=== PATIENT | female | born 1965 | race Caucasian/White ===

== ENCOUNTER 2017-07-13 20:41 | Inpatient (IN) | payer OTHER, MEDICARE, MEDICAID ==
[~2017-07-13] VITALS: Ht 170.2 cm; Wt 51.3 kg
[~2017-07-13 20:41] MED LIST: CYCL-36 PO; IBUP400T20 PO; KETO10 PO; TRAM50 PO
--- NOTE | 2017-07-13 21:16 | PD ---
HPI Chief Complaint: Psychiatric Symptoms Time Seen by Provider: 21:14 Travel History International Travel<30 days: No Contact w/Intl Traveler<30days: No Traveled to known affect area: No History of Present Illness HPI 51-year-old female presents under Blunt act initially by the Police Department. According to her paper, "Chato has been sitting in the yard for 3 days, without eating, waiting for a [employer] clearing house to arrive with a weaning check. Nikunj has not been taking her prescribed depression medication as directed. Chato is also diagnosed with anxiety. Chato was not making reasonable statements upon contact with law enforcement. There is roommate advised her his mental health condition has deteriorated over the course of the weekend." Patient is a poor historian so history is somewhat limited. She says that she lives with an older gentleman and her roommates daughter made these accusations to the police but she denies them. Symptoms are moderate, no obvious aggravating or relieving factors. She also has an area of redness and pain to the left side of her nose which she says started yesterday. No other complaints at this time. History of rheumatoid arthritis and osteoarthritis. PFSH Social History Alcohol Use: No Tobacco Use: Yes Allergies-Medications (Allergen,Severity, Reaction): Coded Allergies: No Known Allergies (Verified , 12/06/08) Reported Meds & Prescriptions Reported Meds & Active Scripts Active Keflex (Cephalexin) 500 Mg Cap 500 Mg PO Q8H 7 Days Bactrim DS (Sulfamethoxazole-Trimethoprim) 800-160 Mg Tab 1 Tab PO BID Flexeril (Cyclobenzaprine HCl) 10 Mg Tab 1 Tab PO Q6-8HPRN FOR MUSCLE SPASM Ultram (Tramadol HCl) 50 Mg Tab 1 Tab PO Q6-8HPRN FOR PAIN Reported Motrin (Ibuprofen) 400 Mg Tab 400 Mg PO Toradol (Ketorolac Tromethamine) 10 Mg Tab 0 PO UNKNOWN DOSE Review of Systems Except as stated in HPI: all other systems reviewed are Neg Physical Exam Narrative GENERAL: Disheveled female in no acute distress SKIN: Warm and dry. There is an area of erythema and induration to the left side of the nose. No fluctuance. HEAD: Atraumatic. Normocephalic. EYES: Pupils equal and round. No scleral icterus. No injection or drainage. ENT: No nasal bleeding or discharge. Mucous membranes pink and moist. NECK: Trachea midline. No JVD. CARDIOVASCULAR: Regular rate and rhythm. No murmur appreciated. RESPIRATORY: No accessory muscle use. Clear to auscultation. Breath sounds equal bilaterally. GASTROINTESTINAL: Abdomen soft, non-tender, nondistended. Hepatic and splenic margins not palpable. MUSCULOSKELETAL: No obvious deformities. No clubbing. No cyanosis. No edema. NEUROLOGICAL: Awake and alert. No obvious cranial nerve deficits. Motor grossly within normal limits. Normal speech. PSYCHIATRIC: Tangential speech, insight and judgment appear impaired. Data Data Last Documented VS Vital Signs Date Time Temp Pulse Resp B/P (MAP) Pulse Ox O2 Delivery O2 Flow Rate FiO2 07/13/17 21:26 98.3 93 16 168/119 (135) 98 Orders Orders Complete Blood Count With Diff (07/13/17 21:22) Comprehensive Metabolic Panel (07/13/17 21:22) Thyroid Stimulating Hormone (07/13/17 21:22) Psych Screen (07/13/17 21:22) Sulfamet-Trimeth Ds 800-160 Mg (Bactrim (07/13/17 21:30) Cephalexin (Keflex) (07/13/17 21:30) Magnesium (Mg) (07/13/17 22:05) Potassium Chloride (Kcl) (07/13/17 22:15) Potassium Chlor 20 Meq Premix (Kcl 20 Me (07/13/17 22:15) Electrocardiogram (07/13/17 ) Potassium Chloride (Kcl) (07/14/17 06:00) Sulfamet-Trimeth Ds 800-160 Mg (Bactrim (07/14/17 09:00) Cephalexin (Keflex) (07/14/17 06:00) Labs Laboratory Tests Test 07/13/17 21:38 White Blood Count 7.8 TH/MM3 Red Blood Count 4.08 MIL/MM3 Hemoglobin 13.2 GM/DL Hematocrit 37.4 % Mean Corpuscular Volume 91.7 FL Mean Corpuscular Hemoglobin 32.4 PG Mean Corpuscular Hemoglobin Concent 35.3 % Red Cell Distribution Width 14.8 % Platelet Count 103 TH/MM3 Mean Platelet Volume 8.4 FL Neutrophils (%) (Auto) 61.9 % Lymphocytes (%) (Auto) 29.6 % Monocytes (%) (Auto) 7.0 % Eosinophils (%) (Auto) 0.9 % Basophils (%) (Auto) 0.6 % Neutrophils # (Auto) 4.8 TH/MM3 Lymphocytes # (Auto) 2.3 TH/MM3 Monocytes # (Auto) 0.5 TH/MM3 Eosinophils # (Auto) 0.1 TH/MM3 Basophils # (Auto) 0.0 TH/MM3 CBC Comment AUTO DIFF Differential Comment AUTO DIFF CONFIRMED Platelet Estimate LOW Platelet Morphology Comment NORMAL Blood Urea Nitrogen 15 MG/DL Creatinine 0.72 MG/DL Random Glucose 85 MG/DL Total Protein 7.7 GM/DL Albumin 3.8 GM/DL Calcium Level 9.2 MG/DL Alkaline Phosphatase 112 U/L Aspartate Amino Transf (AST/SGOT) 50 U/L Alanine Aminotransferase (ALT/SGPT) 49 U/L Total Bilirubin 1.3 MG/DL Sodium Level 136 MEQ/L Potassium Level 2.7 MEQ/L Chloride Level 98 MEQ/L Carbon Dioxide Level 25.9 MEQ/L Anion Gap 12 MEQ/L Estimat Glomerular Filtration Rate 85 ML/MIN Magnesium Level 1.9 MG/DL Thyroid Stimulating Hormone 3rd Gen 0.349 uIU/ML MDM Medical Decision Making Medical Screen Exam Complete: Yes Emergency Medical Condition: Yes Medical Record Reviewed: Yes Differential Diagnosis Acute psychosis, substance-induced mood disorder, adjustment reaction, schizophrenia, medication noncompliance Narrative Course Mental health screening discussed with the patient. Psychiatric screen ordered. The patient was [facility] because she is outside of their scope of practice secondary to chronic pain from rheumatoid arthritis. On examination she has cellulitis to the left side of her nose which is mild and will be treated with Bactrim and Keflex. A urine drug screen was performed today and which is positive for marijuana, methamphetamines, tricyclic antidepressants, oxycodone. Routine lab work has been ordered. Lab work reveals a potassium of 2.7. 20 mEq IV potassium administered, 40 mg oral potassium administered. An additional 40 mEq oral potassium chloride have been ordered for the morning. Patient was also ordered Q12 Bactrim and Q8 Keflex. The patient is medically cleared for psychiatric disposition. Diagnosis Primary Impression: Medical clearance for psychiatric admission Additional Impressions: Cellulitis, face Hypokalemia Scripts Cephalexin (Keflex) 500 Mg Cap 500 MG PO Q8H for Infection for 7 Days, #21 CAP 0 Refills Prov: Manuel Vail MD 07/13/17 Sulfamethoxazole-Trimethoprim (Bactrim DS) 800-160 Mg Tab 1 TAB PO BID for Infection, #14 TAB 0 Refills Prov: Manuel Vail MD 07/13/17 Hunter Peres Jul 13, 2017 21:16
[2017-07-13 21:26] VITALS: BP 168/119; PULSE 93; RESP 16; TEMP 98.3; O2SAT 98
[2017-07-13] MEDS ORDERED: CEPHALEXIN MONOHYDRATE 500 MG CAP PO ONE (21:30)
[2017-07-13] MEDS ORDERED: SULFAMETHOXAZOLE-TRIMETHOPRIM DS 800-160 MG TAB PO ONE (21:30)
[2017-07-13 21:47] LABS: AUTOMATED NEUTROPHIL # 4.8 TH/MM3 (1.8-7.7); BASOPHIL % 0.6 % (0.0-2.0); EOSINOPHIL # 0.1 TH/MM3 (0-0.4); EOSINOPHIL % 0.9 % (0.0-4.0); HEMATOCRIT 37.4 % (35.0-46.0); HEMOGLOBIN 13.2 GM/DL (11.6-15.3); LYMPH % 29.6 % (9.0-44.0); LYMPHOCYTE # 2.3 TH/MM3 (1.0-4.8); MEAN CELL VOLUME 91.7 FL (80.0-100.0); MEAN CORPUSCULAR HEMOGLOBIN 32.4 PG (27.0-34.0); MEAN CORPUSCULAR HGB CONC 35.3 % (32.0-36.0); MEAN PLATELET VOLUME 8.4 FL (7.0-11.0); MONOCYTE # 0.5 TH/MM3 (0-0.9); NEUT % 61.9 % (16.0-70.0); PLATELET COUNT 103 TH/MM3 (150-450); RED BLOOD COUNT 4.08 MIL/MM3 (4.00-5.30); RED CELL DISTRIBUTION WIDTH 14.8 % (11.6-17.2); WHITE BLOOD COUNT 7.8 TH/MM3 (4.0-11.0)
[2017-07-13 22:01] LABS: ALBUMIN 3.8 GM/DL (3.4-5.0); ALT (GPT) 49 U/L (10-53); AST (GOT) 50 U/L (15-37); BICARBONATE 25.9 MEQ/L (21.0-32.0); BLOOD UREA NITROGEN 15 MG/DL (7-18); CALCIUM 9.2 MG/DL (8.5-10.1); CHLORIDE 98 MEQ/L (98-107); CREATININE 0.72 MG/DL (0.50-1.00); GLOMERULAR FILTRATION RATE 85 ML/MIN (>89); GLUCOSE,RANDOM 85 MG/DL (74-106); SODIUM (NA) 136 MEQ/L (136-145)
[2017-07-13] MEDS ORDERED: POTASSIUM CHLORIDE 20 MEQ CONTROLLED RELEASE TAB PO ONE (22:15)
[2017-07-13] MEDS ORDERED: POTASSIUM CHLOR 20 MEQ PREMIX 100 ML IV ONE (22:15)
[2017-07-13 22:16] LABS: ALKALINE PHOSPHATASE 112 U/L (45-117); TOTAL BILIRUBIN ADULT 1.3 MG/DL (0.2-1.0); TOTAL PROTEIN 7.7 GM/DL (6.4-8.2)
[2017-07-13] MEDS ORDERED: CEPH-460 PO (22:43)
[2017-07-13] MEDS ORDERED: BACT800T5 PO (22:43)
[2017-07-13] MEDS ORDERED: ZOLO100T PO (22:54)
[2017-07-13] MEDS ORDERED: BUSP15TA PO (22:54)
[2017-07-13] MEDS ORDERED: LISI10TA3 PO (22:54)
[2017-07-13] MEDS ORDERED: ZYPR5TAB PO (22:54)
[2017-07-14 05:54] VITALS: BP 155/93; PULSE 106; RESP 16; O2SAT 97
[2017-07-14] MEDS: CEPHALEXIN MONOHYDRATE 500 MG CAP PO SCH ×3 (05:54→21:53)
[2017-07-14] MEDS ORDERED: POTASSIUM CHLORIDE 20 MEQ CONTROLLED RELEASE TAB PO ONE (06:00)
[2017-07-14] MEDS ORDERED: CEPHALEXIN MONOHYDRATE 500 MG CAP PO SCH (09:00)
[2017-07-14] MEDS ORDERED: ACETAMINOPHEN 325 MG TAB PO PRN (09:00)
[2017-07-14] MEDS ORDERED: SULFAMETHOXAZOLE-TRIMETHOPRIM DS 800-160 MG TAB PO SCH (09:00)
[2017-07-14] MEDS ORDERED: MAGNESIUM HYDROXIDE SUSP 30 ML CUP PO PRN (09:00)
[2017-07-14] MEDS ORDERED: LORazepam 2 MG/ML VIAL IM PRN ×2 (09:00)
[2017-07-14] MEDS ORDERED: LORazepam 0.5 MG TAB PO PRN (09:00)
[2017-07-14] MEDS ORDERED: ALUMINUM/MAGNESIUM/SIMETH 30 ML CUP PO PRN (09:00)
[2017-07-14] MEDS: SULFAMETHOXAZOLE-TRIMETHOPRIM DS 800-160 MG TAB PO SCH ×2 (09:59→21:53)
[2017-07-14] MEDS: LISINOPRIL 10 MG TAB PO SCH (09:59)
[2017-07-14] MEDS: LORazepam 1 MG TAB PO PRN ×2 (09:59→17:13)
[2017-07-14] MEDS: NICOTINE 21 MG/24 HR PATCH T-DERMAL SCH (10:00)
[2017-07-14 10:02] VITALS: BP 138/90; PULSE 101; RESP 19; O2SAT 98
[2017-07-14 11:00] VITALS: BP 120/75; PULSE 67; RESP 16; TEMP 97.7; O2SAT 96
--- NOTE | 2017-07-14 14:36 | HHI.HP ---
Provisional Diagnosis Admission Date Jul 14, 2017 at 09:00 [place] I. Unspecified psychosis, history of anxiety, r/o polysubstance dependence [place] II. Deferred [place] III. Rheumatoid arthritis, osteoarthritis, hypertension Certification of Person's Competence To Provide Express and Informed Consent I have personally examined Chato Loera , a person being served at [facility] on, Jul 14, 2017 14:26. Express and informed consent means consent voluntarily given in writing, by a competent person, after sufficient explanation and disclosure of the subject matter involved to enable the person to make a knowing and willful decision without any element of force, fraud, deceit, duress, or other form of constraint or coercion. This person is 18 years of age or older, is not now known to be incompetent to consent to treatment with a guardian advocate, and does not have a health care surrogate or proxy currently making medical treatment decisions. I have found this person to be one of the following: [] Competent to provide express and informed consent, as defined above, for voluntary admission to this facility and is competent to provide express and informed consent for treatment. He/she has the consistent capacity to make well reasoned, willful, and knowing decisions concerning his or her medical or mental health treatment. The person fully and consistently understands the purpose of the admission for examination/placement and is fully capable of personally exercising all rights assured [place] [] Incompetent to provide express and informed consent to voluntary admission, and this is incompetent to provide express and informed consent to treatment. The person must be transferred to involuntary status and a petition for a guardian advocate filed with the Circuit Court. [x] Refusing to provide express and informed consent to voluntary admission but is competent to provide express and informed consent for treatment. The person must be discharged or transferred to involuntary status. Form shall be completed within 24 hours of a person's arrival at the receiving facility and filed in the clinical record of each person: 1. Admitted on a voluntary basis 2. Permitted to provide express and informed consent to his/her own treatment 3. Allowed to transfer from involuntary to voluntary status 4. Prior to permitting a person to consent to his or her own treatment after having been previously found incompetent to consent to treatment. History of Present Illness Capacity: Has Capacity HPI The patient is a 51-year-old woman, domiciled with a roommate in [facility], unemployed, supported by [facility], single, with self-reported psychiatric history of anxiety, no previous psychiatric hospitalizations, she is on Zoloft 100 mg, BuSpar 50 mg 3 times daily, no suicidal attempts, medical history of rheumatoid arthritis, hypertension, osteoarthritis, who presents under Blunt act initially by the Police Department. The patient was initially admitted in [facility], but transferred to [place] with the argument that the patient was out of scope due to history of pain. According to her Blunt act paper, " Chato has been sitting in the yard for 3 days, without eating, waiting for a [employer] clearing house to arrive with a weaning check. Nikunj has not been taking her prescribed depression medication as directed. Chato is also diagnosed with anxiety. Chato was not making reasonable statements upon contact with law enforcement. There is roommate advised her his mental health condition has deteriorated over the course of the weekend." She was initially positive for cannabis, amphetamines, benzodiazepines, opiates. Past Family Social History Coded Allergies: No Known Allergies (Verified Allergy, Mild, 12/06/08) Active Scripts Cephalexin (Keflex) 500 Mg Cap, 500 MG PO Q8H for Infection for 7 Days, #21 CAP 0 Refills Prov:Manuel Vail MD 07/13/17 Sulfamethoxazole-Trimethoprim (Bactrim DS) 800-160 Mg Tab, 1 TAB PO BID for Infection, #14 TAB 0 Refills Prov:Manuel Vail MD 07/13/17 Reported Medications Lisinopril (Lisinopril) 10 Mg Tab, 10 MG PO DAILY, #30 TAB 0 Refills 07/13/17 Buspirone (Buspirone) 15 Mg Tab, 15 MG PO BID for Anxiety, TAB 0 Refills 07/13/17 Sertraline (Zoloft) 100 Mg Tab, 100 MG PO DAILY, #30 TAB 0 Refills 07/13/17 Olanzapine (Zyprexa) 5 Mg Tab, 5 MG PO DAILY, #30 TAB 0 Refills 07/13/17 Current Medications Medications (Trade) Dose Ordered Sig/Tamiko Route Start Time Stop Time Status Last Admin (Bactrim Ds 800-160 Mg) 1 tab Q12HR PO 07/14/17 09:00 07/14/17 09:59 (Keflex) 500 mg Q8HR PO 07/14/17 06:00 07/14/17 13:10 (Buspar) 15 mg BID PO 07/14/17 09:00 (Prinivil) 10 mg DAILY PO 07/14/17 09:00 07/14/17 09:59 (ZyPREXA) 5 mg DAILY PO 07/14/17 09:00 (Zoloft) 100 mg DAILY PO 07/14/17 09:00 (Ativan) 1 mg Q6H PRN PO 07/14/17 09:00 07/14/17 09:59 (Ativan Inj) 1 mg Q6H PRN IM 07/14/17 09:00 (Ativan) 0.5 mg Q12H PRN PO 07/14/17 09:00 (Ativan Inj) 0.5 mg Q12H PRN IM 07/14/17 09:00 (Tylenol) 650 mg Q4H PRN PO 07/14/17 09:00 07/14/17 09:59 (Milk Of Magnesia Liq) 30 ml DAILY PRN PO 07/14/17 09:00 (Mag-Al Plus Susp Liq) 30 ml Q6H PRN PO 07/14/17 09:00 (Habitrol 21 Mg Patch.24 Hr) 1 patch DAILY T-DERMAL 07/14/17 09:00 07/14/17 10:00 Miscellaneous Information 1 HS T-DERMAL 07/14/17 21:00 Physical Exam Vital Signs Vital Signs Date Time Temp Pulse Resp B/P (MAP) Pulse Ox O2 Delivery O2 Flow Rate FiO2 07/14/17 10:28 07/14/17 10:02 101 19 98 Room Air 07/13/17 21:26 98.3 I/O 07/14/17 07/14/17 07/15/17 08:00 16:00 00:00 Intake Total 100 ml Balance 100 ml Lab Results Test 07/13/17 21:38 White Blood Count 7.8 TH/MM3 Red Blood Count 4.08 MIL/MM3 Hemoglobin 13.2 GM/DL Hematocrit 37.4 % Mean Corpuscular Volume 91.7 FL Mean Corpuscular Hemoglobin 32.4 PG Mean Corpuscular Hemoglobin Concent 35.3 % Red Cell Distribution Width 14.8 % Platelet Count 103 TH/MM3 Mean Platelet Volume 8.4 FL Neutrophils (%) (Auto) 61.9 % Lymphocytes (%) (Auto) 29.6 % Monocytes (%) (Auto) 7.0 % Eosinophils (%) (Auto) 0.9 % Basophils (%) (Auto) 0.6 % Neutrophils # (Auto) 4.8 TH/MM3 Lymphocytes # (Auto) 2.3 TH/MM3 Monocytes # (Auto) 0.5 TH/MM3 Eosinophils # (Auto) 0.1 TH/MM3 Basophils # (Auto) 0.0 TH/MM3 CBC Comment AUTO DIFF Differential Comment AUTO DIFF CONFIRMED Platelet Estimate LOW Platelet Morphology Comment NORMAL Blood Urea Nitrogen 15 MG/DL Creatinine 0.72 MG/DL Random Glucose 85 MG/DL Total Protein 7.7 GM/DL Albumin 3.8 GM/DL Calcium Level 9.2 MG/DL Alkaline Phosphatase 112 U/L Aspartate Amino Transf (AST/SGOT) 50 U/L Alanine Aminotransferase (ALT/SGPT) 49 U/L Total Bilirubin 1.3 MG/DL Sodium Level 136 MEQ/L Potassium Level 2.7 MEQ/L Chloride Level 98 MEQ/L Carbon Dioxide Level 25.9 MEQ/L Anion Gap 12 MEQ/L Estimat Glomerular Filtration Rate 85 ML/MIN Magnesium Level 1.9 MG/DL Thyroid Stimulating Hormone 3rd Gen 0.349 uIU/ML Mental Status Examination Appearance: Appropriate Consciousness: Alert Orientation: x4 Motor Activity: Normal gait Speech: Unremarkable Language: Adequate Fund of Knowledge: Adequate Attention and Concentration: Adequate Memory: Unremarkable Mood: Appropriate Affect: Appropriate Thought Process & Associations: Intact Thought Content: Appropriate Hallucination Type: None Delusion Type: Paranoid Suicidal Ideation: No Suicidal Plan: No Suicidal Intention: No Homicidal Ideation: No Homicidal Plan: No Homicidal Intention: No Insight: Poor Judgment: Poor Assessment & Plan Problem List: (1) Unspecified psychosis ICD Codes: F29 - Unspecified psychosis not due to a substance or known physiological condition Assessment & Plan: Psychiatric evaluation today the patient presents a little bit disorganized, paranoid, minimizing symptoms of psychosis and recent events that brought him to the hospital. As per Blunt act initiated by law- enforcement and also by the petition for involuntary admission initiated in [facility] , patient has been acutely delusional, disorganized, not able to provide meaningful information. Today she seems to be doing better, but still guarded, refusing to provide names for collateral information to start a safe discharge. The patient would be admitted in psychiatry for stabilization, longitudinal observation of mood and behavior. Will continue olanzapine 5 mg at bedtime started in [facility]. Continue Zoloft 100 mg, BuSpar 50 mg 3 times daily. Will consult hospitalist for underlying medical conditions per for underline medical conditions. Assessment & Plan Estimated LOS: days Lenard Brown MD Jul 14, 2017 14:36
--- NOTE | 2017-07-14 17:41 | PD.CONS ---
[facility] By Psychiatry team Reason for Consult Medical Affairs Specialist medical management of chronic pain, rheumatoid arthritis Primary Care Physician No Primary Care Physician Diagnoses: History of Present Illness Written by Andrey Alexander, acting as scribe for Dr. Jauregui on 07/14/17 at 17:41. Patient is a 51-year-old female with primary medical history of HTN who came in to the hospital is a Blunt act by the Police Department. Per review of records as per Blunt act paper from the Police Department "Chato has been sitting in the yard for 3 days, without eating, waiting for a [employer] house to arrive with a winning check." She is now admitted to inpatient psychiatry unit for further evaluation. Consulted for assistance with medical management for chronic pain, UTI. Patient seen and examined today. 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 States she has 9 times hernia surgery. She reports of urinary burning sensation. Also with a bug bite on her left nasal area. Denies cough SOB/ dyspnea. Denies chest pain, palpitations, headaches, dizziness. Denies fevers, chills, n/v/d. Review of Systems ROS Limitations: Poor Historian Past Family Social History Allergies: Coded Allergies: No Known Allergies (Verified Allergy, Mild, 12/06/08) Past Medical History HTN Neuropathy "Tona Nelly Tooth Disease" Rheumatoid arthritis Past Surgical History Hernia surgeries x9 Right knee replacement Left shoulder surgery Reported Medications Reported Meds & Active Scripts Active Keflex (Cephalexin) 500 Mg Cap 500 Mg PO Q8H 7 Days Bactrim DS (Sulfamethoxazole-Trimethoprim) 800-160 Mg Tab 1 Tab PO BID Reported Lisinopril 10 Mg Tab 10 Mg PO DAILY Buspirone (Buspirone HCl) 15 Mg Tab 15 Mg PO BID Zoloft (Sertraline HCl) 100 Mg Tab 100 Mg PO DAILY Zyprexa (Olanzapine) 5 Mg Tab 5 Mg PO DAILY Active Ordered Medications Current Medications Medications (Trade) Dose Ordered Sig/Tamiko Route Start Time Stop Time Status Last Admin (Bactrim Ds 800-160 Mg) 1 tab Q12HR PO 07/14/17 09:00 07/14/17 09:59 (Keflex) 500 mg Q8HR PO 07/14/17 06:00 07/14/17 13:10 (Buspar) 15 mg BID PO 07/14/17 09:00 (Prinivil) 10 mg DAILY PO 07/14/17 09:00 07/14/17 09:59 (ZyPREXA) 5 mg DAILY PO 07/14/17 09:00 (Zoloft) 100 mg DAILY PO 07/14/17 09:00 (Ativan) 1 mg Q6H PRN PO 07/14/17 09:00 07/14/17 17:13 (Ativan Inj) 1 mg Q6H PRN IM 07/14/17 09:00 (Ativan) 0.5 mg Q12H PRN PO 07/14/17 09:00 (Ativan Inj) 0.5 mg Q12H PRN IM 07/14/17 09:00 (Tylenol) 650 mg Q4H PRN PO 07/14/17 09:00 07/14/17 09:59 (Milk Of Magnesia Liq) 30 ml DAILY PRN PO 07/14/17 09:00 (Mag-Al Plus Susp Liq) 30 ml Q6H PRN PO 07/14/17 09:00 (Habitrol 21 Mg Patch.24 Hr) 1 patch DAILY T-DERMAL 07/14/17 09:00 07/14/17 10:00 Miscellaneous Information 1 HS T-DERMAL 07/14/17 21:00 Family History Mother has rheumatoid arthritis Social History Denies alcohol use Current day smoker, half a pack per day Marijuana use Physical Exam Vital Signs Vital Signs Date Time Temp Pulse Resp B/P (MAP) Pulse Ox O2 Delivery O2 Flow Rate FiO2 07/14/17 10:28 07/14/17 10:02 101 19 138/90 (106) 98 Room Air 07/14/17 05:54 106 16 155/93 (113) 97 Room Air 07/13/17 21:26 98.3 93 16 168/119 (135) 98 Physical Exam GENERAL: This is a thin appearing, appears older than stated age, in no apparent distress. SKIN: Warm and dry. Bilateral lower extremity multiple ecchymotic areas. HEAD: Normocephalic. EYES: Pupils equal round and reactive. Extraocular motions intact. No scleral icterus. No injection or drainage. ENT: Nose without bleeding. Left side erythema and edema noted. Throat without erythema. Uvula midline. Airway patent. NECK: Trachea midline. CARDIOVASCULAR: Regular rate and rhythm without murmurs, gallops, or rubs. RESPIRATORY: Clear to auscultation. Breath sounds equal bilaterally. No wheezes , rales, or rhonchi. GASTROINTESTINAL: Abdomen soft, non-tender, nondistended. MUSCULOSKELETAL: Extremities without clubbing, cyanosis, or edema. Joint tenderness hands and feet NEUROLOGICAL: Awake and alert. Cranial nerves II through XII intact. Motor and sensory grossly within normal limits. Normal speech. Laboratory Laboratory Tests Test 07/13/17 21:38 07/14/17 15:09 White Blood Count 7.8 Red Blood Count 4.08 Hemoglobin 13.2 Hematocrit 37.4 Mean Corpuscular Volume 91.7 Mean Corpuscular Hemoglobin 32.4 Mean Corpuscular Hemoglobin Concent 35.3 Red Cell Distribution Width 14.8 Platelet Count 103 Mean Platelet Volume 8.4 Neutrophils (%) (Auto) 61.9 Lymphocytes (%) (Auto) 29.6 Monocytes (%) (Auto) 7.0 Eosinophils (%) (Auto) 0.9 Basophils (%) (Auto) 0.6 Neutrophils # (Auto) 4.8 Lymphocytes # (Auto) 2.3 Monocytes # (Auto) 0.5 Eosinophils # (Auto) 0.1 Basophils # (Auto) 0.0 CBC Comment AUTO DIFF Differential Comment AUTO DIFF CONFIRMED Platelet Estimate LOW Platelet Morphology Comment NORMAL Blood Urea Nitrogen 15 Creatinine 0.72 Random Glucose 85 Total Protein 7.7 Albumin 3.8 Calcium Level 9.2 Alkaline Phosphatase 112 Aspartate Amino Transf (AST/SGOT) 50 Alanine Aminotransferase (ALT/SGPT) 49 Total Bilirubin 1.3 Sodium Level 136 Potassium Level 2.7 3.2 Chloride Level 98 Carbon Dioxide Level 25.9 Anion Gap 12 Estimat Glomerular Filtration Rate 85 Magnesium Level 1.9 Thyroid Stimulating Hormone 3rd Gen 0.349 Result Diagram: 07/13/17 2138 07/14/17 1507 Assessment and Plan Problem List: (1) Unspecified psychosis ICD Code: F29 - Unspecified psychosis not due to a substance or known physiological condition (2) Cellulitis, face ICD Code: L03.211 - Cellulitis of face Status: Acute Assessment and Plan Patient is a 51-year-old female with primary medical history of HTN who came in to the hospital is a Blunt act by the Police Department. Per review of records as per Blunt act paper from the Police Department "Chato has been sitting in the yard for 3 days, without eating, waiting for a [employer] house to arrive with a winning check." She is now admitted to inpatient psychiatry unit for further evaluation. Consulted for assistance with medical management for chronic pain, UTI. Psychosis -Managed by psychiatry Left nasal area cellulitis -Continue Bactrim, Keflex -Apply Bactroban -No leukocytosis -Continue to monitor Rheumatoid arthritis Neuropathy -Pain management, oxycodone q8 x3 days only -Patient needs follow-up as an outpatient for rheumatoid workout. -Start her on any rheumatoid arthritis medication, she will need an outpatient work Hypokalemia -Potassium replacement -Monitor BMP Urinary symptoms -Check UA Tobacco absue Illicit drug - counseled, nicotine patch DVT prop early ambulation Code Status Full Code Discussed Condition With Patient, nursing This note was transcribed by scribe [Andrey Alexander ]. I, Dr. Brooklyn Jauregui personally performed the history, physical exam, and medical decision making; and confirmed the accuracy of the information in the transcribed note. Authenticated by Dr. Brooklyn Jauregui on 07/14/17 at 17:48. Andrey Aldrich Jul 14, 2017 17:41 Brooklyn Jauregui MD Jul 14, 2017 17:48
[2017-07-14 18:00] VITALS: BP 119/71; PULSE 110; RESP 20; TEMP 98.1; O2SAT 96
--- NOTE | 2017-07-14 19:04 | EKG ---
Date Performed: 07/13/2017 Time Performed: 22:30:10 PTAGE: 51 years EKG: Sinus rhythm LEFT VENTRICULAR HYPERTROPHY AND ST-T CHANGE ABNORMAL ECG PREVIOUS TRACING : 07/10/2004 12.36 Since the previous tracing, no significant change noted DOCTOR: Andi Avalos Interpretating Date/Time 07/14/2017 19:03:10
[2017-07-14] MEDS: REMOVE OLD NICODERM (NICOTINE) PATCH T-DERMAL SCH (21:00)
[2017-07-14] MEDS: SERTRALINE HCL 100 MG TAB PO SCH (21:53)
[2017-07-14] MEDS: OLANZapine 5 MG TAB PO SCH (21:53)
[2017-07-14] MEDS: busPIRone HCL 5 MG TAB PO SCH (21:58)
[2017-07-15] MEDS: CEPHALEXIN MONOHYDRATE 500 MG CAP PO SCH ×3 (06:00→20:48)
[2017-07-15] MEDS: NICOTINE 21 MG/24 HR PATCH T-DERMAL SCH (09:00)
[2017-07-15] MEDS: busPIRone HCL 5 MG TAB PO SCH ×2 (09:39→20:49)
[2017-07-15] MEDS: SULFAMETHOXAZOLE-TRIMETHOPRIM DS 800-160 MG TAB PO SCH ×2 (09:40→20:48)
[2017-07-15] MEDS: LISINOPRIL 10 MG TAB PO SCH (09:40)
[2017-07-15] MEDS: SERTRALINE HCL 100 MG TAB PO SCH (09:40)
[2017-07-15] MEDS: OLANZapine 5 MG TAB PO SCH (09:40)
[2017-07-15 11:16] LABS: ALBUMIN 3.3 GM/DL (3.4-5.0); ALT (GPT) 38 U/L (10-53); AST (GOT) 36 U/L (15-37); BICARBONATE 26.7 MEQ/L (21.0-32.0); BLOOD UREA NITROGEN 17 MG/DL (7-18); CALCIUM 8.4 MG/DL (8.5-10.1); CHLORIDE 105 MEQ/L (98-107); CHOLESTEROL 120 MG/DL (120-200); CREATININE 0.78 MG/DL (0.50-1.00); GLOMERULAR FILTRATION RATE 77 ML/MIN (>89); GLUCOSE,RANDOM 102 MG/DL (74-106); SODIUM (NA) 139 MEQ/L (136-145); TRIGLYCERIDES 103 MG/DL (42-150)
--- NOTE | 2017-07-15 11:16 | HHI.PYPN ---
Subjective Remarks Patient seen for follow-up, chart reviewed. Discussion with nursing staff reported that the patient less disoriented. Patient is a 51 y/o woman who was brought in by police under [place] allegedly having been sitting in her yard for three days, not eating, waiting for [employer] to arrive with a winning check. Urine toxicology: methamphetamine (+)/THC (+)/ Opiates (+)/ TCA (+). Patient was initially admitted in [facility] which petition for involuntary admission was started and transferred to the medical/psychiatry unit due to not having the scope to manage the patient's chronic pain. Medical team currently following for UTI (+ ) and nasal cellulitis (+). Patient was found lying on hospital bed, noted to calm and cooperative; alert and oriented x 3. Patient states that her roommate' s daughter wanted her to go with her to pay for gasoline which she refused and called 911 stating that he was in the yard for the past three days waiting for [employer]. Urine toxicology results were discussed which she denies using alcohol or substances stating that she only uses medications prescribed to her. She reports living with her roommate for the past two years , recently with adequate appetite, denies any change in mood lately and denies any SI. Review of Systems Except as stated in HPI: all other systems reviewed are Neg Mental Status Examination Appearance: Appropriate Consciousness: Alert Orientation: x4 Motor Activity: Normal gait Speech: Unremarkable Language: Adequate Fund of Knowledge: Adequate Attention and Concentration: Adequate Memory: Unremarkable Mood: Appropriate Affect: Appropriate Thought Process & Associations: Intact Thought Content: Appropriate Hallucination Type: None Delusion Type: Paranoid Suicidal Ideation: No Suicidal Plan: No Suicidal Intention: No Homicidal Ideation: No Homicidal Plan: No Homicidal Intention: No Insight: Poor Judgment: Poor Results Labs Test 07/14/17 15:09 07/15/17 10:23 Potassium Level 3.2 MEQ/L Vitals/IOs Vital Signs Date Time Temp Pulse Resp B/P (MAP) Pulse Ox O2 Delivery O2 Flow Rate FiO2 07/14/17 18:00 98.1 110 20 119/71 (87) 96 07/14/17 10:02 Room Air Intake and Output 07/15/17 07/15/17 07/16/17 08:00 16:00 00:00 Intake Total 480 ml Balance 480 ml Assessment & Plan Problem List: (1) Unspecified psychosis ICD Codes: F29 - Unspecified psychosis not due to a substance or known physiological condition Assessment & Plan Patient A&O x 3 but appears to have some difficulty with providing adequate detail into circumstances that led to her hospitalization. Patient with positive urine drug screen and denies substance use. Collateral pending from roommate. Continue with current treatment as patient notably more organized compared to description of initial presentation. Continue to monitor mood and behavior. Discharge planning in progress. Justification for Cont. Inpt. At risk for further decompensation if at lower level of care. Discharge Planning Return back to her residence Francis Yanez MD Jul 15, 2017 11:16
[2017-07-15 11:18] LABS: ALKALINE PHOSPHATASE 111 U/L (45-117); CHOLESTEROL/ HDL RATIO 4.15 RATIO; HDL CHOLESTEROL 28.9 MG/DL (40.0-60.0); LDL CHOLESTEROL 71 MG/DL (0-99); TOTAL BILIRUBIN ADULT 0.5 MG/DL (0.2-1.0)
--- NOTE | 2017-07-15 13:50 | HHI.PR ---
Subjective Remarks Follow-up visit RA, chronic pain, left nasal area cellulitis, neuropathy. Patient seen and examined today. Reports she continues to have pain on her joints bilateral hips, bilateral legs. States that she has also neuropathy she has been taking gabapentin 900 mg 3 times daily. Patient also states that she takes Percocet. Uses [facility]. Otherwise, Denies pain and discomfort. Denies SOB/ dyspnea. Denies chest pain, palpitations, headaches, dizziness. Denies fevers, chills, n/v/d. Denies hematuria, dysuria. Objective Vitals Vital Signs Date Time Temp Pulse Resp B/P (MAP) Pulse Ox O2 Delivery O2 Flow Rate FiO2 07/14/17 18:00 98.1 110 20 119/71 (87) 96 I/O 07/14/17 07/14/17 07/14/17 07/15/17 07/15/17 07/15/17 07:00 15:00 23:00 07:00 15:00 23:00 Intake Total 340 ml 360 ml 240 ml 600 ml Balance 340 ml 360 ml 240 ml 600 ml Intake Oral 240 ml 360 ml 240 ml 600 ml IV Total 100 ml # Voids 1 Result Diagram: 07/13/17 2138 07/15/17 1023 Objective Remarks GENERAL: This is a thin appearing, appears older than stated age, in no apparent distress. SKIN: Warm and dry. Bilateral lower extremity multiple ecchymotic areas. HEAD: Normocephalic. EYES: Pupils equal round and reactive. Extraocular motions intact. No scleral icterus. No injection or drainage. ENT: Nose without bleeding. Left side erythema and edema noted. Throat without erythema. Uvula midline. Airway patent. NECK: Trachea midline. CARDIOVASCULAR: Regular rate and rhythm without murmurs, gallops, or rubs. RESPIRATORY: Clear to auscultation. Breath sounds equal bilaterally. No wheezes , rales, or rhonchi. GASTROINTESTINAL: Abdomen soft, non-tender, nondistended. MUSCULOSKELETAL: Extremities without clubbing, cyanosis, or edema. Joint tenderness hands and feet NEUROLOGICAL: Awake and alert. Cranial nerves II through XII intact. Motor and sensory grossly within normal limits. Normal speech. A/P Problem List: (1) Unspecified psychosis ICD Code: F29 - Unspecified psychosis not due to a substance or known physiological condition (2) Cellulitis, face ICD Code: L03.211 - Cellulitis of face Status: Acute Assessment and Plan Patient is a 51-year-old female with primary medical history of HTN who came in to the hospital is a [place]unt act by the [employer]. Per review of records as per Blunt act paper from the Police Department "Chato has been sitting in the yard for 3 days, without eating, waiting for a [employer]'s clearing house to arrive with a winning check." She is now admitted to inpatient psychiatry unit for further evaluation. Consulted for assistance with medical management for chronic pain, UTI. Psychosis -Managed by psychiatry Left nasal area cellulitis -Continue Bactrim, Keflex -Apply Bactroban -No leukocytosis -Continue to monitor Rheumatoid arthritis Neuropathy -Pain management, oxycodone q8 x3 days only, will verify pain medication -Patient needs follow-up as an outpatient for rheumatoid workout. -Start her on any rheumatoid arthritis medication, she will need an outpatient work -Start gabapentin 300 mg 3 times daily. Patient states she takes 900 mg gabapentin 3 times daily. Will start the lower dose for now Hypokalemia -Potassium replacement -Monitor BMP Urinary symptoms -Check UA Tobacco absue Illicit drug - counseled, nicotine patch Andrey Aldrich Jul 15, 2017 13:50
[2017-07-15 17:24] LABS: HEMOGLOBIN A1C 4.8 % (4.3-6.0)
[2017-07-15] MEDS: GABAPENTIN 300 MG CAP PO SCH (18:00)
[2017-07-15 18:35] VITALS: BP 100/65; PULSE 86; RESP 16; TEMP 98.4
[2017-07-15] MEDS: REMOVE OLD NICODERM (NICOTINE) PATCH T-DERMAL SCH (20:49)
[2017-07-16] MEDS: CEPHALEXIN MONOHYDRATE 500 MG CAP PO SCH ×3 (05:03→22:36)
[2017-07-16 05:53] VITALS: BP 133/72; PULSE 70; RESP 16; TEMP 98.5; O2SAT 92
[2017-07-16] MEDS: NICOTINE 21 MG/24 HR PATCH T-DERMAL SCH (09:00)
[2017-07-16] MEDS: SULFAMETHOXAZOLE-TRIMETHOPRIM DS 800-160 MG TAB PO SCH ×2 (09:19→22:36)
[2017-07-16] MEDS: GABAPENTIN 300 MG CAP PO SCH ×3 (09:19→18:00)
[2017-07-16] MEDS: SERTRALINE HCL 100 MG TAB PO SCH (09:19)
[2017-07-16] MEDS: busPIRone HCL 5 MG TAB PO SCH ×2 (09:19→22:36)
[2017-07-16] MEDS: OLANZapine 5 MG TAB PO SCH ×2 (09:20→22:36)
[2017-07-16] MEDS: LISINOPRIL 10 MG TAB PO SCH (09:20)
--- NOTE | 2017-07-16 09:31 | HHI.PYPN ---
Subjective Remarks Patient seen for follow, chart reviewed. Discussion nursing staff reported the patient with no behavioral disturbances, compliant with medications. Patient was found sitting in hospital bed after showering today, noted B, cooperative. Patient reports that she slept well, alert and oriented 3, states her mood has been "good", reports having slept well, eating and drinking well no difficulty with bowel movement. Continues report that she has 1 to check for [employer] clearing house which she was visited by people from his company of the being of the month that she had taken pictures of her holding up check of $100,000 and now waiting for the actual check coming to the male. Collateral information obtained by treatment team from patient's roommate stated that patient prior to admission which stand out front of the yard for hours waiting for the [employer] house or check to arrive which he had to ring her back in the house to eat and drink she was not doing so on her own. He stated that he would feel uncomfortable having her return back to the home if she continues to have this delusion. He reports that patient account of having been visited by people are not true and the patient had not won any prize money. Review of Systems Except as stated in HPI: all other systems reviewed are Neg Mental Status Examination Appearance: Appropriate Consciousness: Alert Orientation: x4 Motor Activity: Normal gait Speech: Unremarkable Language: Adequate Fund of Knowledge: Adequate Attention and Concentration: Adequate Memory: Unremarkable Mood: Appropriate Affect: Appropriate Thought Process & Associations: Intact Thought Content: Delusional Hallucination Type: None Delusion Type: Bizarre Suicidal Ideation: No Suicidal Plan: No Suicidal Intention: No Homicidal Ideation: No Homicidal Plan: No Homicidal Intention: No Insight: Poor Judgment: Poor Results Labs Labs reviewed Test 07/15/17 10:23 Blood Urea Nitrogen 17 MG/DL Creatinine 0.78 MG/DL Random Glucose 102 MG/DL Total Protein 7.0 GM/DL Albumin 3.3 GM/DL Calcium Level 8.4 MG/DL Alkaline Phosphatase 111 U/L Aspartate Amino Transf (AST/SGOT) 36 U/L Alanine Aminotransferase (ALT/SGPT) 38 U/L Total Bilirubin 0.5 MG/DL Sodium Level 139 MEQ/L Potassium Level 3.5 MEQ/L Chloride Level 105 MEQ/L Carbon Dioxide Level 26.7 MEQ/L Anion Gap 7 MEQ/L Estimat Glomerular Filtration Rate 77 ML/MIN Hemoglobin A1c 4.8 % Triglycerides Level 103 MG/DL Cholesterol Level 120 MG/DL LDL Cholesterol 71 MG/DL HDL Cholesterol 28.9 MG/DL Cholesterol/HDL Ratio 4.15 RATIO Vitals/IOs Vital Signs Date Time Temp Pulse Resp B/P (MAP) Pulse Ox O2 Delivery O2 Flow Rate FiO2 07/16/17 05:53 98.5 70 16 133/72 (92) 92 07/14/17 10:02 Room Air Intake and Output 07/16/17 07/16/17 07/17/17 08:00 16:00 00:00 Intake Total 480 ml Balance 480 ml Assessment & Plan Problem List: (1) Unspecified psychosis ICD Codes: F29 - Unspecified psychosis not due to a substance or known physiological condition Assessment & Plan Patient at this time continues to endorse bizarre delusion of having 1 prize money from [facility] which had been contributing to her self neglect prior to her admission he continued to be a concern for patient's room and at this time. We will increase olanzapine to 5 mg p.o. twice daily for psychosis. Continue monitor with behavior. Patient to continue antibiotic treatment for nasal cellulitis and continue recommendations as per prior medical team. Discharge planning in progress. Justification for Cont. Inpt. At risk for further decompensation if at lower level of care Discharge Planning To be determined. Francis Yanez MD Jul 16, 2017 09:31
--- NOTE | 2017-07-16 11:35 | HHI.PR ---
Subjective Remarks Follow-up visit RA, chronic pain, left nasal area cellulitis, neuropathy. Patient seen and examined today. Reports pain is improved some with pain medications. Discussed with patient and she will not be getting any pain medication when she gets discharged and she needs to follow-up with her primary care doctor. Agrees with plan. Denies SOB/ dyspnea. Denies chest pain, palpitations, headaches, dizziness. Denies fevers, chills, n/v/d. Denies dysuria. Objective Vitals Vital Signs Date Time Temp Pulse Resp B/P (MAP) Pulse Ox O2 Delivery O2 Flow Rate FiO2 07/16/17 05:53 98.5 70 16 133/72 (92) 92 07/15/17 18:35 98.4 86 16 100/65 (77) I/O 07/15/17 07/15/17 07/15/17 07/16/17 07/16/17 07/16/17 06:59 14:59 22:59 06:59 14:59 22:59 Intake Total 1200 ml 1680 ml 480 ml Balance 1200 ml 1680 ml 480 ml Intake Oral 1200 ml 1680 ml 480 ml # Voids 1 3 0 Result Diagram: 07/13/17 2138 07/15/17 1023 Objective Remarks GENERAL: This is a thin appearing, appears older than stated age, in no apparent distress. SKIN: Warm and dry. Bilateral lower extremity multiple ecchymotic areas. HEAD: Normocephalic. EYES: Pupils equal round and reactive. Extraocular motions intact. No scleral icterus. No injection or drainage. ENT: Nose without bleeding. Left side erythema and edema noted. Throat without erythema. Uvula midline. Airway patent. NECK: Trachea midline. CARDIOVASCULAR: Regular rate and rhythm without murmurs, gallops, or rubs. RESPIRATORY: Clear to auscultation. Breath sounds equal bilaterally. No wheezes , rales, or rhonchi. GASTROINTESTINAL: Abdomen soft, non-tender, nondistended. MUSCULOSKELETAL: Extremities without clubbing, cyanosis, or edema. Joint tenderness hands and feet NEUROLOGICAL: Awake and alert. Cranial nerves II through XII intact. Motor and sensory grossly within normal limits. Normal speech. A/P Problem List: (1) Unspecified psychosis ICD Code: F29 - Unspecified psychosis not due to a substance or known physiological condition (2) Cellulitis, face ICD Code: L03.211 - Cellulitis of face Status: Acute Assessment and Plan Patient is a 51-year-old female with primary medical history of HTN who came in to the hospital is a [place] act by the [employer]. Per review of records as per Blunt act paper from the Police Department "Chato has been sitting in the yard for 3 days, without eating, waiting for a [employer] clearing house to arrive with a winning check." She is now admitted to inpatient psychiatry unit for further evaluation. Consulted for assistance with medical management for chronic pain, UTI. Psychosis -Managed by psychiatry Left nasal area cellulitis -Continue Bactrim, Keflex x12 days -Apply Bactroban -No leukocytosis -Continue to monitor Rheumatoid arthritis Neuropathy -Pain management, oxycodone q8 x3 days only, will verify pain medication -Patient needs follow-up as an outpatient for rheumatoid workout. -Will not start her on any rheumatoid arthritis medication, she will need an outpatient work -Continue gabapentin 300 mg 3 times daily. Patient states she takes 900 mg gabapentin 3 times daily. Hypokalemia -Potassium replacement -Monitor BMP Urinary symptoms -Check UA Tobacco abuse Illicit drug - counseled, nicotine patch DVT prop ambulatory Andrey Aldrich Jul 16, 2017 11:35
[2017-07-16] MEDS: MUPIROCIN 2% OINT 22 GM TUBE TOPICAL SCH ×2 (12:00→22:36)
[2017-07-16 18:05] VITALS: BP 120/71; PULSE 71; RESP 16; TEMP 99.1; O2SAT 95
[2017-07-16] MEDS: REMOVE OLD NICODERM (NICOTINE) PATCH T-DERMAL SCH (21:00)
[2017-07-17] MEDS: CEPHALEXIN MONOHYDRATE 500 MG CAP PO SCH ×3 (06:01→22:09)
[2017-07-17 06:15] VITALS: BP 149/86; PULSE 82; RESP 18; TEMP 98.3; O2SAT 97
[2017-07-17] MEDS: SERTRALINE HCL 100 MG TAB PO SCH (09:00)
[2017-07-17] MEDS: MUPIROCIN 2% OINT 22 GM TUBE TOPICAL SCH ×2 (09:00→22:19)
[2017-07-17] MEDS: GABAPENTIN 300 MG CAP PO SCH ×3 (09:00→17:01)
[2017-07-17] MEDS: OLANZapine 5 MG TAB PO SCH ×2 (09:00→22:10)
[2017-07-17] MEDS: SULFAMETHOXAZOLE-TRIMETHOPRIM DS 800-160 MG TAB PO SCH ×2 (09:00→22:09)
[2017-07-17] MEDS: NICOTINE 21 MG/24 HR PATCH T-DERMAL SCH (09:00)
[2017-07-17] MEDS: LISINOPRIL 10 MG TAB PO SCH (09:00)
[2017-07-17] MEDS: busPIRone HCL 5 MG TAB PO SCH ×2 (09:00→22:10)
--- NOTE | 2017-07-17 11:51 | HHI.PYPN ---
Subjective Remarks Reviewed electronic medical record and discussed case with staff. Follow-up was conducted with JACOB Zuleta present. Staff reports that patient is "clearer now" although the reports she still has a sad, flat affect. Additionally, her nurse reports she is discharge focused since her hospital roommate was discharged. The advised that the patient has been compliant cooperative. Patient was found ambulating around her room. She reports that she "feels better" she did get a bath today. She states that she has been sleeping well and her appetite has been good. When asked why she was here she responded, "I played [employer]. I am in the $100,000 pul but I am out now since I was admitted here." Per the patient she had been filling out [employer] surveys and she still believes that she is to receive $100 gift card and a free phone in the mail. She then went on to state that she had become involved and the Internet surveys when she was attempting to "receive grants to go back to school". During this explanation the patient stated that "they installed a camera on my cell phone", she also mentioned that they were listening to her and that is how she believes this all happened. He still seems to be some delusion present although, she does understand now that she has not one in the [employer]. Mental Status Examination Appearance: Appropriate Consciousness: Alert Orientation: x4 Motor Activity: Normal gait Speech: Unremarkable Language: Adequate Fund of Knowledge: Adequate Attention and Concentration: Adequate Memory: Unremarkable Mood: Appropriate Affect: Appropriate Thought Process & Associations: Intact Thought Content: Delusional Hallucination Type: None Delusion Type: Bizarre Suicidal Ideation: No Suicidal Plan: No Suicidal Intention: No Homicidal Ideation: No Homicidal Plan: No Homicidal Intention: No Insight: Poor Judgment: Poor Results Vitals/IOs Vital Signs Date Time Temp Pulse Resp B/P (MAP) Pulse Ox O2 Delivery O2 Flow Rate FiO2 07/17/17 06:15 98.3 82 18 149/86 (107) 97 07/14/17 10:02 Room Air Intake and Output 07/17/17 07/17/17 07/18/17 08:00 16:00 00:00 Intake Total 0 ml 480 ml Balance 0 ml 480 ml Assessment & Plan Problem List: (1) Unspecified psychosis ICD Codes: F29 - Unspecified psychosis not due to a substance or known physiological condition Assessment & Plan Estimated LOS: Continue with current treatment plan. Patient's attending psychiatrist will be back on Wednesday to reevaluate. Days Justification for Cont. Inpt. Patient continues to have some delusions. Moving her to a lower level of care at this time would likely result in decompensation. Malissa Hassan Jul 17, 2017 11:51
--- NOTE | 2017-07-17 11:54 | HHI.PR ---
Subjective Remarks Follow-up visit OA chronic pain, left nasal area cellulitis, neuropathy. Patient seen and examined today. Reports she has drainage of "nasty stuff" inside her left nare being cleaned by tissue. States it started yesterday. Denies fevers, chills, nausea, vomiting, diarrhea. Continues to take her antibiotics. Pain has improved with pain medication. Denies SOB/ dyspnea. Denies chest pain, palpitations, headaches, dizziness. Denies dysuria. Objective Vitals Vital Signs Date Time Temp Pulse Resp B/P (MAP) Pulse Ox O2 Delivery O2 Flow Rate FiO2 07/17/17 06:15 98.3 82 18 149/86 (107) 97 07/16/17 18:05 99.1 71 16 120/71 (87) 95 I/O 07/16/17 07/16/17 07/16/17 07/17/17 07/17/17 07/17/17 07:00 15:00 23:00 07:00 15:00 23:00 Intake Total 720 ml 840 ml 0 ml 480 ml Balance 720 ml 840 ml 0 ml 480 ml Intake Oral 720 ml 840 ml 0 ml 480 ml # Voids 0 4 2 Result Diagram: 07/13/17 2138 07/15/17 1023 Objective Remarks GENERAL: This is a thin appearing, appears older than stated age, in no apparent distress. SKIN: Warm and dry. Bilateral lower extremity multiple ecchymotic areas. HEAD: Normocephalic. EYES: Pupils equal round and reactive. Extraocular motions intact. No scleral icterus. No injection or drainage. ENT: Nose without bleeding. Left side erythema and edema noted, improving. Unable to visualize left nares drainage. Throat without erythema. Uvula midline. Airway patent. NECK: Trachea midline. CARDIOVASCULAR: Regular rate and rhythm without murmurs, gallops, or rubs. RESPIRATORY: Clear to auscultation. Breath sounds equal bilaterally. No wheezes , rales, or rhonchi. GASTROINTESTINAL: Abdomen soft, non-tender, nondistended. MUSCULOSKELETAL: Extremities without clubbing, cyanosis, or edema. Joint tenderness hands and feet NEUROLOGICAL: Awake and alert. Cranial nerves II through XII intact. Motor and sensory grossly within normal limits. Normal speech. A/P Problem List: (1) Unspecified psychosis ICD Code: F29 - Unspecified psychosis not due to a substance or known physiological condition (2) Cellulitis, face ICD Code: L03.211 - Cellulitis of face Status: Acute Assessment and Plan Patient is a 51-year-old female with primary medical history of HTN who came in to the hospital is a [place]unt act by the [employer]. Per review of records as per Blunt act paper from the Police Department "Chato has been sitting in the yard for 3 days, without eating, waiting for a [employer]'s clearing house to arrive with a winning check." She is now admitted to inpatient psychiatry unit for further evaluation. Consulted for assistance with medical management for chronic pain, UTI. Psychosis -Managed by psychiatry Left nasal area cellulitis -Continue Bactrim, Keflex x12 days -Apply Bactroban -No leukocytosis -Continue to monitor. Improving left Tay erythema, edema -Nasal swab culture, follow-up results ?Rheumatoid arthritis, osteoarthritis Neuropathy -Pain management, oxycodone q8 x3 days only, will verify pain medication -Patient needs follow-up as an outpatient for rheumatoid workout. -Will not start her on any rheumatoid arthritis medication, she will need an outpatient work -Continue gabapentin 300 mg 3 times daily. Patient states she takes 900 mg gabapentin 3 times daily. Hypokalemia -Potassium replacement -Monitor BMP Urinary symptoms -Check UA Tobacco abuse Illicit drug - counseled, nicotine patch DVT prop ambulatory Andrey Aldrich Jul 17, 2017 11:54
[2017-07-17 18:15] VITALS: BP 146/87; PULSE 82; RESP 16; TEMP 98.4; O2SAT 97
[2017-07-17] MEDS: REMOVE OLD NICODERM (NICOTINE) PATCH T-DERMAL SCH (21:00)
[2017-07-17] MEDS: LORazepam 1 MG TAB PO PRN (22:18)
[2017-07-18] MEDS: CEPHALEXIN MONOHYDRATE 500 MG CAP PO SCH ×2 (05:42→14:00)
[2017-07-18 06:00] VITALS: BP 152/96; PULSE 83; RESP 16; TEMP 97.8; O2SAT 97
[2017-07-18] MEDS: SERTRALINE HCL 100 MG TAB PO SCH (09:00)
[2017-07-18] MEDS: GABAPENTIN 300 MG CAP PO SCH ×3 (09:00→17:50)
[2017-07-18] MEDS: MUPIROCIN 2% OINT 22 GM TUBE TOPICAL SCH ×2 (09:00→21:35)
[2017-07-18] MEDS: LISINOPRIL 10 MG TAB PO SCH (09:00)
[2017-07-18] MEDS: SULFAMETHOXAZOLE-TRIMETHOPRIM DS 800-160 MG TAB PO SCH ×2 (09:00→21:34)
[2017-07-18] MEDS: OLANZapine 5 MG TAB PO SCH ×2 (09:00→21:34)
[2017-07-18] MEDS: busPIRone HCL 5 MG TAB PO SCH ×2 (09:00→21:34)
[2017-07-18] MEDS: NICOTINE 21 MG/24 HR PATCH T-DERMAL SCH (09:00)
[2017-07-18] MEDS: LORazepam 1 MG TAB PO PRN ×2 (12:26→21:49)
--- NOTE | 2017-07-18 13:45 | HHI.PYPN ---
Subjective Remarks Chart reviewed and patient discussed with JACOB Ricci. Patient is in bed resting. Patient continues to talk about filling out surveys and winning money from the [employer]. She is pre-occupied with chronic pain. She states that she takes Zelganz 5mg bid and Mayvett which are not on formulary here. She is taking her neurontin , buspar and blood pressure medications. Endorses that she is sleeping and eating well. Mood is flat and she appears sad. Encouraged patient to get out of bed and participate in unit activities. Mental Status Examination Appearance: Appropriate Consciousness: Alert Orientation: x4 Motor Activity: Normal gait Speech: Unremarkable Language: Adequate Fund of Knowledge: Adequate Attention and Concentration: Adequate Memory: Unremarkable Mood: Appropriate Affect: Appropriate Thought Process & Associations: Intact Thought Content: Preoccupations (winning lottery or reward from a survey) Hallucination Type: None Delusion Type: Other (continues to think she is going to win [employer] ) Suicidal Ideation: No Suicidal Plan: No Suicidal Intention: No Homicidal Ideation: No Homicidal Plan: No Homicidal Intention: No Insight: Poor Judgment: Poor Results Labs Date/Time Source Procedure Growth Status 07/17/17 12:30 Respiratory MRSA Surveillance Culture Pending Received Vitals/IOs Vital Signs Date Time Temp Pulse Resp B/P (MAP) Pulse Ox O2 Delivery O2 Flow Rate FiO2 07/18/17 06:00 97.8 83 16 152/96 (114) 97 07/14/17 10:02 Room Air Intake and Output 07/18/17 07/18/17 07/19/17 08:00 16:00 00:00 Intake Total 240 ml Balance 240 ml Assessment & Plan Problem List: (1) Unspecified psychosis ICD Codes: F29 - Unspecified psychosis not due to a substance or known physiological condition Assessment & Plan Estimated LOS: days Continue current treatment plan. Justification for Cont. Inpt. Moving patient to a lower level of care may result in her decompensation. Pratima Nichols Jul 18, 2017 13:45
--- NOTE | 2017-07-18 14:25 | HHI.PR ---
Subjective Remarks Follow-up visit OA chronic pain, left nasal area cellulitis, neuropathy. Patient seen and examined today. Reports she is doing well. States the Bactroban is helping her nasal area. Denies fevers, chills, nausea, vomiting, diarrhea. Denies SOB/ dyspnea. Denies chest pain, palpitations, headaches, dizziness. Denies dysuria. Objective Vitals Vital Signs Date Time Temp Pulse Resp B/P (MAP) Pulse Ox O2 Delivery O2 Flow Rate FiO2 07/18/17 06:00 97.8 83 16 152/96 (114) 97 07/17/17 18:15 98.4 82 16 146/87 (106) 97 I/O 07/17/17 07/17/17 07/17/17 07/18/17 07/18/17 07/18/17 07:00 15:00 23:00 07:00 15:00 23:00 Intake Total 0 ml 840 ml 2040 ml 0 ml 240 ml Balance 0 ml 840 ml 2040 ml 0 ml 240 ml Intake Oral 0 ml 840 ml 2040 ml 0 ml 240 ml # Voids 2 1 1 # Bowel Movements 2 Result Diagram: 07/15/17 1023 Objective Remarks GENERAL: This is a thin appearing, appears older than stated age, in no apparent distress. SKIN: Warm and dry. Bilateral lower extremity multiple ecchymotic areas. HEAD: Normocephalic. EYES: Pupils equal round and reactive. Extraocular motions intact. No scleral icterus. No injection or drainage. ENT: Nose without bleeding. Left side erythema and edema noted, improving. Unable to visualize left nares drainage. Throat without erythema. Uvula midline. Airway patent. NECK: Trachea midline. CARDIOVASCULAR: Regular rate and rhythm without murmurs, gallops, or rubs. RESPIRATORY: Clear to auscultation. Breath sounds equal bilaterally. No wheezes , rales, or rhonchi. GASTROINTESTINAL: Abdomen soft, non-tender, nondistended. MUSCULOSKELETAL: Extremities without clubbing, cyanosis, or edema. Joint tenderness hands and feet NEUROLOGICAL: Awake and alert. Cranial nerves II through XII intact. Motor and sensory grossly within normal limits. Normal speech. A/P Problem List: (1) Unspecified psychosis ICD Code: F29 - Unspecified psychosis not due to a substance or known physiological condition (2) Cellulitis, face ICD Code: L03.211 - Cellulitis of face Status: Acute Assessment and Plan Patient is a 51-year-old female with primary medical history of HTN who came in to the hospital is a Blunt act by the [employer]. Per review of records as per Blunt act paper from the Police Department "Chato has been sitting in the yard for 3 days, without eating, waiting for a [employer] clearing house to arrive with a winning check." She is now admitted to inpatient psychiatry unit for further evaluation. Consulted for assistance with medical management for chronic pain, UTI. Psychosis -Managed by psychiatry Left nasal area cellulitis -Apply Bactroban -No leukocytosis -Continue to monitor. Improving left Tay erythema, edema -Nasal swab culture, Positive MRSA. Will DC keflex continue Bactrim and Bactroban 12 day ?Rheumatoid arthritis, osteoarthritis Neuropathy -Given oxycodone 3 days. No complaints of pain today off of the oxycodone. -Patient needs follow-up as an outpatient for rheumatoid workout. -Will not start her on any rheumatoid arthritis medication, she will need an outpatient work -Continue gabapentin 300 mg 3 times daily. Patient states she takes 900 mg gabapentin 3 times daily. Hypokalemia -Potassium replacement -Monitor BMP Urinary symptoms -Check UA Tobacco abuse Illicit drug - counseled, nicotine patch DVT prop ambulatory Andrey Aldrich Jul 18, 2017 14:25
[2017-07-18 17:47] VITALS: BP 141/96; PULSE 96; RESP 16; TEMP 98.9; O2SAT 94
[2017-07-18] MEDS: REMOVE OLD NICODERM (NICOTINE) PATCH T-DERMAL SCH (21:00)
[2017-07-18] MEDS: MUPIROCIN 2% OINT 1 APPLIC/GM SYR NASAL SCH (21:35)
[2017-07-19 05:17] VITALS: BP 133/68; PULSE 82; RESP 16; TEMP 97.6; O2SAT 95
[2017-07-19 08:27] LABS: HEMATOCRIT 39.3 % (35.0-46.0); HEMOGLOBIN 13.2 GM/DL (11.6-15.3); MEAN CELL VOLUME 96.1 FL (80.0-100.0); MEAN CORPUSCULAR HEMOGLOBIN 32.2 PG (27.0-34.0); MEAN CORPUSCULAR HGB CONC 33.5 % (32.0-36.0); MEAN PLATELET VOLUME 9.2 FL (7.0-11.0); PLATELET COUNT 76 TH/MM3 (150-450); RED BLOOD COUNT 4.09 MIL/MM3 (4.00-5.30); RED CELL DISTRIBUTION WIDTH 15.2 % (11.6-17.2); WHITE BLOOD COUNT 4.1 TH/MM3 (4.0-11.0)
[2017-07-19 08:53] LABS: BICARBONATE 27.5 MEQ/L (21.0-32.0); CALCIUM 9.3 MG/DL (8.5-10.1); CREATININE 0.82 MG/DL (0.50-1.00)
[2017-07-19] MEDS: MUPIROCIN 2% OINT 22 GM TUBE TOPICAL SCH ×2 (09:00→20:36)
[2017-07-19] MEDS: OLANZapine 5 MG TAB PO SCH (10:08)
[2017-07-19] MEDS: busPIRone HCL 5 MG TAB PO SCH ×2 (10:09→20:31)
[2017-07-19] MEDS: LISINOPRIL 10 MG TAB PO SCH (10:09)
[2017-07-19] MEDS: GABAPENTIN 300 MG CAP PO SCH ×3 (10:09→17:05)
[2017-07-19] MEDS: SULFAMETHOXAZOLE-TRIMETHOPRIM DS 800-160 MG TAB PO SCH ×2 (10:09→20:35)
[2017-07-19] MEDS: SERTRALINE HCL 100 MG TAB PO SCH (10:10)
[2017-07-19] MEDS: MUPIROCIN 2% OINT 1 APPLIC/GM SYR NASAL SCH ×2 (10:10→20:35)
[2017-07-19] MEDS: NICOTINE 21 MG/24 HR PATCH T-DERMAL SCH (10:10)
[2017-07-19] MEDS: LORazepam 1 MG TAB PO PRN ×2 (10:27→17:10)
--- NOTE | 2017-07-19 11:20 | HHI.PR ---
Subjective Remarks Follow-up visit OA chronic pain, left nasal area cellulitis, neuropathy. Patient seen and examined today. Reports she is doing well. Denies fevers, chills, nausea, vomiting, diarrhea. Denies SOB/ dyspnea. Denies chest pain, palpitations, headaches, dizziness. Denies dysuria. Objective Vitals Vital Signs Date Time Temp Pulse Resp B/P (MAP) Pulse Ox O2 Delivery O2 Flow Rate FiO2 07/19/17 05:17 97.6 82 16 133/68 (89) 95 07/18/17 17:47 98.9 96 16 141/96 (111) 94 I/O 07/18/17 07/18/17 07/18/17 07/19/17 07/19/17 07/19/17 07:00 15:00 23:00 07:00 15:00 23:00 Intake Total 0 ml 600 ml 1320 ml 60 ml 480 ml Balance 0 ml 600 ml 1320 ml 60 ml 480 ml Intake Oral 0 ml 600 ml 1320 ml 60 ml 480 ml # Voids 1 6 1 Result Diagram: 07/19/17 0756 07/19/17 0756 Objective Remarks GENERAL: This is a thin appearing, appears older than stated age, in no apparent distress. SKIN: Warm and dry. Bilateral lower extremity multiple ecchymotic areas. HEAD: Normocephalic. EYES: Pupils equal round and reactive. Extraocular motions intact. No scleral icterus. No injection or drainage. ENT: Nose without bleeding. Left side mild erythema noted, improving. Unable to visualize left nares drainage. Throat without erythema. Uvula midline. Airway patent. NECK: Trachea midline. CARDIOVASCULAR: Regular rate and rhythm without murmurs, gallops, or rubs. RESPIRATORY: Clear to auscultation. Breath sounds equal bilaterally. No wheezes , rales, or rhonchi. GASTROINTESTINAL: Abdomen soft, non-tender, nondistended. MUSCULOSKELETAL: Extremities without clubbing, cyanosis, or edema. Joint tenderness hands and feet NEUROLOGICAL: Awake and alert. Cranial nerves II through XII intact. Motor and sensory grossly within normal limits. Normal speech. A/P Problem List: (1) Unspecified psychosis ICD Code: F29 - Unspecified psychosis not due to a substance or known physiological condition (2) Cellulitis, face ICD Code: L03.211 - Cellulitis of face Status: Acute Assessment and Plan Patient is a 51-year-old female with primary medical history of HTN who came in to the hospital is a Blunt act by the [employer]. Per review of records as per Blunt act paper from the Police Department "Chato has been sitting in the yard for 3 days, without eating, waiting for a [email or web address] house to arrive with a winning check." She is now admitted to inpatient psychiatry unit for further evaluation. Consulted for assistance with medical management for chronic pain, UTI. Psychosis -Managed by psychiatry Left nasal area cellulitis -Apply Bactroban -No leukocytosis -Continue to monitor. Improving left Tay erythema, edema -Nasal swab culture, Positive MRSA. Will DC keflex continue Bactrim and Bactroban 12 day -Isolation protocol ?Rheumatoid arthritis, osteoarthritis Neuropathy -Given oxycodone 3 days. No complaints of pain today off of the oxycodone. -Patient needs follow-up as an outpatient for rheumatoid workout. -Will not start her on any rheumatoid arthritis medication, she will need an outpatient work -Continue gabapentin 300 mg 3 times daily. Patient states she takes 900 mg gabapentin 3 times daily. Hypokalemia -Potassium replacement -Monitor BMP Urinary symptoms -Check UA Tobacco abuse Illicit drug - counseled, nicotine patch DVT prop ambulatory Continue with current regimen Bactrim, Bactroban. Stable from Hospitalist standpoint. We will sign off. Reconsult as needed. Follow-up with PCP when DC home. Andrey Aldrich Jul 19, 2017 11:20
[2017-07-19] MEDS ORDERED: PILL SPLITTER OTHER PRN (17:15)
[2017-07-19 17:55] VITALS: BP 118/64; PULSE 95; RESP 16; TEMP 99.3; O2SAT 98
[2017-07-19] MEDS ORDERED: OLANZapine 5 MG TAB PO SCH (21:00)
[2017-07-19] MEDS: REMOVE OLD NICODERM (NICOTINE) PATCH T-DERMAL SCH (21:00)
--- NOTE | 2017-07-19 21:16 | HHI.PYPN ---
Subjective Remarks Patient seen for follow up, chart reviewed. Discussion with nursing staff reported the patient noted to be somewhat tearful today ambulating eating and drinking well. [facility] bed noted B, cooperative. Patient continues to believe that she is in a running to when prize money from different soliciting [employer]. She states that she had missed her chance to win a prize money from [employer]. She also goes on to state that she had received phone calls telling her that she had won a car and that all she has to do was go to the [employer] to pick it up. Possibility of these "services" of being scams were discussed with patient which patient states that it would be possible but continues to believe that there is money coming to her. Collateral information obtained by patient's roommate whom she lives with confirm that patient is not welcome back to return to live with him. Patient states that she plans on moving back to [place] to be close to family. Review of Systems Except as stated in HPI: all other systems reviewed are Neg Mental Status Examination Appearance: Appropriate Consciousness: Alert Orientation: x4 Motor Activity: Normal gait Speech: Unremarkable Language: Adequate Fund of Knowledge: Adequate Attention and Concentration: Adequate Memory: Unremarkable Mood: Appropriate Affect: Appropriate Thought Process & Associations: Intact Thought Content: Delusional Hallucination Type: None Delusion Type: Other (continues to think she is going to win prizes from soliciting [employer].) Suicidal Ideation: No Suicidal Plan: No Suicidal Intention: No Homicidal Ideation: No Homicidal Plan: No Homicidal Intention: No Insight: Poor Judgment: Poor Results Labs labs reviewed Test 07/19/17 07:56 White Blood Count 4.1 TH/MM3 Red Blood Count 4.09 MIL/MM3 Hemoglobin 13.2 GM/DL Hematocrit 39.3 % Mean Corpuscular Volume 96.1 FL Mean Corpuscular Hemoglobin 32.2 PG Mean Corpuscular Hemoglobin Concent 33.5 % Red Cell Distribution Width 15.2 % Platelet Count 76 TH/MM3 Mean Platelet Volume 9.2 FL Blood Urea Nitrogen 14 MG/DL Creatinine 0.82 MG/DL Random Glucose 97 MG/DL Calcium Level 9.3 MG/DL Sodium Level 141 MEQ/L Potassium Level 4.6 MEQ/L Chloride Level 105 MEQ/L Carbon Dioxide Level 27.5 MEQ/L Anion Gap 9 MEQ/L Estimat Glomerular Filtration Rate 73 ML/MIN Date/Time Source Procedure Growth Status 07/17/17 12:30 Respiratory MRSA Surveillance Culture - Final Positive For Mrsa Complete Vitals/IOs Vital Signs Date Time Temp Pulse Resp B/P (MAP) Pulse Ox O2 Delivery O2 Flow Rate FiO2 07/19/17 17:55 99.3 95 16 118/64 (82) 98 Intake and Output 07/19/17 07/19/17 07/20/17 08:00 16:00 00:00 Intake Total 60 ml 480 ml 1440 ml Balance 60 ml 480 ml 1440 ml Assessment & Plan Problem List: (1) Unspecified psychosis ICD Codes: F29 - Unspecified psychosis not due to a substance or known physiological condition Assessment & Plan Patient this time continues with persistent delusions which have contributed to her initial self-care deficit. Patient is noted to be eating more and caring for self on the unit but continues with bizarre delusions of winning prize money. We will continue to titrate olanzapine to 5 mg a.m./7.5 mg at bedtime for psychosis. We will continue to monitor mood and behavior. Patient at this time is that we will come back to her residence and will therefore require referral to an alternative housing option. Discharge planning in progress. Justification for Cont. Inpt. At risk for further decompensation if at lower level of care. Discharge Planning To be determined Francsi Yanez MD Jul 19, 2017 21:16
[2017-07-20 05:32] VITALS: BP 135/66; PULSE 76; RESP 16; TEMP 97.9
[2017-07-20] MEDS: MUPIROCIN 2% OINT 22 GM TUBE TOPICAL SCH (09:00)
[2017-07-20] MEDS: NICOTINE 21 MG/24 HR PATCH T-DERMAL SCH (09:00)
[2017-07-20] MEDS: MUPIROCIN 2% OINT 1 APPLIC/GM SYR NASAL SCH (09:00)
[2017-07-20] MEDS ORDERED: OLANZapine 5 MG TAB PO SCH (09:00)
[2017-07-20] MEDS: GABAPENTIN 300 MG CAP PO SCH ×2 (09:09→13:12)
[2017-07-20] MEDS: SERTRALINE HCL 100 MG TAB PO SCH (09:09)
[2017-07-20] MEDS: SULFAMETHOXAZOLE-TRIMETHOPRIM DS 800-160 MG TAB PO SCH (09:09)
[2017-07-20] MEDS: LISINOPRIL 10 MG TAB PO SCH (09:10)
[2017-07-20] MEDS: busPIRone HCL 5 MG TAB PO SCH (09:10)
[2017-07-20] MEDS ORDERED: NEUR300C PO (11:55)
[2017-07-20] MEDS ORDERED: BUSP15TA PO (11:55)
[2017-07-20] MEDS ORDERED: BACT800T5 PO (11:55)
[2017-07-20] MEDS ORDERED: ZOLO100T PO (11:55)
[2017-07-20] MEDS ORDERED: LISI10TA3 PO (11:55)
[2017-07-20] MEDS ORDERED: OLAN5TAB PO ×2 (11:55)
[2017-07-20] MEDS: LORazepam 1 MG TAB PO PRN (13:12)
--- NOTE | 2017-07-20 15:02 | HHI.DS ---
Psychiatry Discharge Summary Inpatient Psychiatric care?: Yes Advance Directive: No Reason Not Provided: given Mental Health AdvanceDirective: No Health Care Proxy: No Admission Admission Date Jul 14, 2017 at 09:00 Admission Diagnosis: (1) Unspecified psychosis ICD Code: F29 - Unspecified psychosis not due to a substance or known physiological condition Brief History The patient is a 51-year-old woman, domiciled with a roommate in [facility], unemployed, supported by [facility], single, with self-reported psychiatric history of anxiety, no previous psychiatric hospitalizations, she is on Zoloft 100 mg, BuSpar 50 mg 3 times daily, no suicidal attempts, medical history of rheumatoid arthritis, hypertension, osteoarthritis, who presents under [email or web address] act initially by the Police Department. The patient was initially admitted in [facility], but transferred to [place] with the argument that the patient was out of scope due to history of pain. According to her Blunt act paper, " Chato has been sitting in the yard for 3 days, without eating, waiting for a [email or web address] clearing house to arrive with a weaning check. Nikunj has not been taking her prescribed depression medication as directed. Chato is also diagnosed with anxiety. Chato was not making reasonable statements upon contact with law enforcement. There is roommate advised her his mental health condition has deteriorated over the course of the weekend." She was initially positive for cannabis, amphetamines, benzodiazepines, opiates. Tobacco Use In Past 30 Days: 5 or More Cigarettes/Day Alcohol Use: Never Hospital Course Patient is a 51 y/o woman who was brought in by police under [email or web address] Act allegedly having been sitting in her yard for three days, not eating, waiting for [employer] clearing house to arrive with a winning check who was transferred to the inpatient psychiatry unit for further evaluation and management. Patient was started on olanzapine and titrated to 5mg am/ 7.5mg HS and was also continued on medication regimen for chronic medical illnesses. Patient was also found to have MRSA and nasal cellulitis which patient was treated and followed by primary medical team. Patient tolerated medications well no evidence or reported adverse drug reactions. Patient noted to start having improvement in mood, less disorganization and delusions, no manic symptoms noted and denied SI or HI. Patient maintained adequate personal hygiene and caring for self, improved appetite and cooperative with staff. Discussion with patient's [id number] over the phone by treatment team confirmed planning on picking up patient to accompany her to retrieve her belongings in prior residence and will stay with him; did not have any safety concerns of patient and would be supervising and supportive of patient continuing current treatment regimen as well as outpatient follow up for continuity of care. Recommendations were provided to patient to continue treatment and follow up appointments for continuity of care. Patient agreed be discharged to brother in law. Patient has maximized benefit from this inpatient psychiatric hospital stay and will be discharged to [facility] home today with follow-up as arranged by counselor. Patient advised to call 911 or go nearest ED in case of emergency. Patient agreed with plan. Results Blood Pressure 135 / 66 Vital Signs Date Time Temp Pulse Resp B/P (MAP) Pulse Ox O2 Delivery O2 Flow Rate FiO2 07/20/17 05:32 97.9 76 16 135/66 (89) 07/19/17 17:55 98 Laboratory Tests Test 07/19/17 07:56 Platelet Count 76 TH/MM3 (150-450) Estimat Glomerular Filtration Rate 73 ML/MIN (>89) Laboratory Results Test 07/15/17 10:23 Cholesterol Level 120 MG/DL (120-200) HDL Cholesterol 28.9 MG/DL (40.0-60.0) Hemoglobin A1c 4.8 % (4.3-6.0) LDL Cholesterol 71 MG/DL (0-99) Triglycerides Level 103 MG/DL (42-150) Summary of Procedures None Pending results at discharge: No Medications # of Antipsychotic meds at D/C: 1 Approp Antipsych med options 1 - Minimum of three failed multiple trials of monotherapy. 2 - Documented plan to taper to monotherapy due to previous use of multiple meds OR cross-taper in progress at D/C. 3 - Documentation of augmentation of Clozapine. 4 - Justification other than those listed in allowable values 1-3, document here : Discharge Discharge Date: Jul 20, 2017 Discharge Diagnosis: (1) Unspecified psychosis ICD Code: F29 - Unspecified psychosis not due to a substance or known physiological condition Pt Condition on Discharge: Stable Discharge Disposition: Discharge Home Discharge Instructions Diet Instructions: As Tolerated, No Restrictions Activities you can perform: Regular-No Restrictions Scheduled Appointment: Abad Pugh Appointment Date: Jul 21, 2017 Appointment Time: 07:30a.m. Discharge Time > 30 minutes Mental Status Examination Appearance: Appropriate Consciousness: Alert Orientation: x4 Motor Activity: Normal gait Speech: Unremarkable Language: Adequate Fund of Knowledge: Adequate Attention and Concentration: Adequate Memory: Unremarkable Mood: Appropriate Affect: Appropriate Thought Process & Associations: Intact Thought Content: Delusional (minimal) Hallucination Type: None Delusion Type: Other (belief of winning prize money through sweepstakes.) Suicidal Ideation: No Suicidal Plan: No Suicidal Intention: No Homicidal Ideation: No Homicidal Plan: No Homicidal Intention: No Insight: Fair Judgment: Impulsive Discharge/Advance Care Plan Health Problems: (1) Unspecified psychosis Goals to promote your health * To prevent worsening of your condition and complications * To maintain your health at the optimal level Directions to meet your goals Take your medications as prescribed Follow your dietary instruction Follow activity as directed Keep your appointments as scheduled Take your immunizations and boosters as scheduled If your symptoms worsen call your PCP, if no PCP go to Urgent Care Center or Emergency Room For 24 questions related to your inpatient stay or results of tests pending at discharge, please contact Dr. Francis Yanez at Smoking is Dangerous to Your Health. Avoid second hand smoking Francis Yanez MD Jul 20, 2017 15:02
== END 2017-07-20 15:50 | disposition home or self-care (01) | DRG 885 ==
LOC: NEPD 20:41 → NEDA 07-14 09:00 → H4EA 07-14 10:55
PROVIDERS: ADMIT Student in an Organized Health Care Education/Training Program; ATTEND Student in an Organized Health Care Education/Training Program
DX: F29 Unspecified psychosis not due to a substance or known physiological condition (principal); G62.9 Polyneuropathy, unspecified; I10 Essential (primary) hypertension; L03.211 Cellulitis of face; M06.9 Rheumatoid arthritis, unspecified; M19.90 Unspecified osteoarthritis, unspecified site; F41.9 Anxiety disorder, unspecified; Z22.322 Carrier or suspected carrier of Methicillin resistant Staphylococcus aureus; E87.6 Hypokalemia; F17.210 Nicotine dependence, cigarettes, uncomplicated; F12.90 Cannabis use, unspecified, uncomplicated; R39.198 Other difficulties with micturition; Z96.651 Presence of right artificial knee joint
CPT/HCPCS: 80048; 80053; 80061; 83036; 83735; 84132; 84443; 85025; 85027; 87081; 93005; 96365; 96366; J3480